=== PATIENT | male | born 1935 | race Caucasian/White ===

== ENCOUNTER 2017-07-21 09:33 | Emergency (ER) | payer MEDICARE, BC ==
[~2017-07-21] VITALS: Ht 182.9 cm; Wt 70.7 kg
[~2017-07-21 09:33] MED LIST: ALPR-624 PO; CARV6.253 PO; DIGO250T77 PO; FLUT16SP26 BOTHNARES; HYDR-569 PO; LANS30CA56 PO; LEVO50TA8 PO
[2017-07-21 09:42] VITALS: BP 141/70
[2017-07-21] MEDS ORDERED: LIDOcaine Viscous 15ml cup MM PRN (10:00)
[2017-07-21] MEDS ORDERED: VALA100027 PO (10:04)
== END 2017-07-21 10:38 | disposition home or self-care (01) ==
LOC: ER 09:34
DX: A60.01 Herpesviral infection of penis (principal); I48.91 Unspecified atrial fibrillation; K21.9 Gastro-esophageal reflux disease without esophagitis; Z86.73 Personal history of transient ischemic attack (TIA), and cerebral infarction without residual deficits; Z85.118 Personal history of other malignant neoplasm of bronchus and lung; Z95.1 Presence of aortocoronary bypass graft; Z90.49 Acquired absence of other specified parts of digestive tract; Z88.5 Allergy status to narcotic agent
CPT/HCPCS: 87252; 99284

== ENCOUNTER 2017-09-22 15:10 | Inpatient (IN) | payer MEDICARE, BC ==
[~2017-09-22] VITALS: Ht 177.8 cm; Wt 70.9 kg
[~2017-09-22 15:10] MED LIST changes: +VALA100027 PO
[2017-09-22] MEDS ORDERED: albuterol 2.5 MG/3 ML nebule NEB ONE (15:30)
[2017-09-22 15:45] LABS: HEMATOCRIT 39.7 % (42.0-52.0); HEMOGLOBIN 13.5 g/dl (14.0-17.9); MEAN CORPUSCULAR HEMOGLOBIN 33.3 PG (27.0-31.0); MEAN PLATELET VOLUME 8.8 FL (7.4-10.4); PLATELET COUNT 129 X10'3 (140-440); RED BLOOD COUNT 4.05 X10'6 (4.70-6.10); RED CELL DISTRIBUTION WIDTH 14.1 % (11.5-14.5); WHITE BLOOD COUNT 5.3 X10'3 (4.5-11.0)
[2017-09-22 15:59] LABS: ALANINE AMINOTRANSFERASE 30 U/L (12-78); ALBUMIN 4.1 G/DL (3.4-5.0); ALKALINE PHOSPHATASE 92 IU/L (46-116); ANION GAP 7 (8-16); BILIRUBIN,TOTAL 0.6 MG/DL (0.1-1.0); BLOOD UREA NITROGEN 14 MG/DL (7-18); BUN/CREATININE RATIO 12.2 (5.4-32.0); CALCIUM 9.5 MG/DL (8.5-10.1); CHLORIDE 100 MMOL/L (99-107); CREATININE 1.15 MG/DL (0.60-1.10); GLUCOSE 174 MG/DL (70-104); SODIUM 138 MMOL/L (135-145); TOTAL CARBON DIOXIDE 30.6 MMOL/L (24-32); TOTAL PROTEIN 8.4 G/DL (6.4-8.2); eGFR 61 ML/MIN
[2017-09-22 16:07] LABS: POTASSIUM 4.6 MMOL/L (3.5-5.1)
[2017-09-22 16:08] LABS: ASPARTATE AMINO TRANSFERASE 23 U/L (10-37)
[2017-09-22 16:10] LABS: TOTAL CELLS COUNTED 100
[2017-09-22] MEDS ORDERED: furosemide 10 MG/1 ML 10ml inj IV ONE (16:10)
[2017-09-22] MEDS ORDERED: metoprolol tartrate 1mg/ml inj IV ONE (16:10)
[2017-09-22 16:11] LABS: PLATELET ESTIMATE DECREASED
[2017-09-22 16:12] LABS: POIKILOCYTOSIS 1+
[2017-09-22] MEDS ORDERED: CefTRIAXone 2gm/D5W 50ml 50 ML IV ONE (16:30)
[2017-09-22] MEDS ORDERED: azithromycin/NS 500mg/250ml 250 ML IV ONE (16:30)
[2017-09-22 16:35] LABS: ABG BASE EXCESS 1.3 mmol/L (-2.0-3.0); ABG HCO3 23.3 mmol/L (22.0-26.0); ABG OXYGEN SATURATION 97.6 % (95-98); ABG PCO2 (T) 29.3 mmHg (35.0-48.0); ABG PH (T) 7.518 (7.350-7.450); ABG PO2 (T) 103.8 mmHg (83-108); ALLEN'S TEST Positive; FCOHb 0.9 % (0.5-1.5); FMetHb 0.3 % (0.3-1.12); FO2Hb 96.4 % (94-100); RESPIRATORY RATE (OBSERVED) 24 b/min
[2017-09-22] MEDS ORDERED: OMEP40CA37 PO (17:15)
[2017-09-22] MEDS ORDERED: HYDROcodone/acetaminophen 5mg/325mg tablet PO PRN ×2 (17:25→17:30)
[2017-09-22] MEDS ORDERED: ALPRAZolam 0.5mg tablet PO PRN (17:25)
[2017-09-22] MEDS ORDERED: mag hydrox/Alum hydrox/simeth 30ml oral suspension PO PRN (17:30)
[2017-09-22] MEDS ORDERED: HYDROcodone/acetaminophen 10/325mg tab PO PRN (17:30)
[2017-09-22] MEDS ORDERED: acetaminophen 325mg tablet PO PRN ×2 (17:30)
[2017-09-22] MEDS ORDERED: metoclopramide 5 mg/ml inj IV PRN (17:30)
[2017-09-22] MEDS ORDERED: HYDROmorphone 1 mg/ml syringe IV PRN (17:30)
[2017-09-22] MEDS ORDERED: diphenhydrAMINE 25mg capsule PO PRN (17:30)
[2017-09-22] MEDS ORDERED: ondansetron/PF 4mg/2ml inj IV PRN (17:30)
[2017-09-22] MEDS ORDERED: diphenhydrAMINE 50 mg/ml inj IV PRN (17:30)
[2017-09-22] MEDS ORDERED: magnesium hydroxide 30ml (MOM) UD suspension PO PRN (17:30)
[2017-09-22] MEDS ORDERED: bisacodyl 10mg suppository rectal RC PRN (17:30)
[2017-09-22] MEDS ORDERED: acetaminophen 650mg rectal suppository RC PRN (17:30)
[2017-09-22 17:47] LABS: D-DIMER 0.57 MG/L FEU (0-0.50)
[2017-09-22 18:10] LABS: LIPASE 232 U/L (73-393); MAGNESIUM 1.9 MG/DL (1.5-2.4)
[2017-09-22] MEDS ORDERED: ATOR20TA PO (18:10)
[2017-09-22 18:12] LABS: PHOSPHORUS 3.1 MG/DL (2.3-4.5)
[2017-09-22 18:13] LABS: PARTIAL THROMBOPLASTIN TIME 26 SECONDS (22-32); PROTHROMBIN TIME 10.7 SECONDS (9.0-12.0)
[2017-09-22] MEDS ORDERED: pneumococcal 23-VAL P-sac vacc 25 mcg/0.5ml vial IMVAC ONE (18:35)
[2017-09-22] MEDS: carvedilol 6.25mg tablet PO SCH (19:03)
[2017-09-22] MEDS: docusate sod 100mg capsule PO SCH (19:03)
[2017-09-22] MEDS ORDERED: methylPREDNISolone sod succ 125mg/2ml vial IV ONE (20:00)
[2017-09-22] MEDS ORDERED: albuterol 2.5 MG/3 ML nebule NEB PRN (20:05)
[2017-09-22] MEDS ORDERED: temazepam 15mg capsule PO PRN (21:00)
[2017-09-23] VITALS: BP 113/68
[2017-09-23] MEDS: HYDROmorphone 1 mg/ml syringe IV PRN ×2 (01:38→05:37)
[2017-09-23 02:26] LABS: BASOPHILS % (AUTO) 0.1 % (0-1); EOSINOPHILS % (AUTO) 0.6 % (0-6); HEMATOCRIT 39.1 % (42.0-52.0); HEMOGLOBIN 13.3 g/dl (14.0-17.9); LYMPHOCYTES # (AUTO) 0.6 X10'3 (1.1-4.8); LYMPHOCYTES % (AUTO) 9.9 % (21-51); MEAN CORPUSCULAR HEMOGLOBIN 33.8 PG (27.0-31.0); MEAN CORPUSCULAR VOLUME 99.3 FL (78-98); MEAN PLATELET VOLUME 9.4 FL (7.4-10.4); MONOCYTES # (AUTO) 0.1 X10'3 (0-0.9); MONOCYTES % (AUTO) 1.8 % (2-12); NEUTROPHILS % (AUTO) 87.6 % (42-75); PLATELET COUNT 125 X10'3 (140-440); RED BLOOD COUNT 3.94 X10'6 (4.70-6.10); WHITE BLOOD COUNT 5.8 X10'3 (4.5-11.0)
[2017-09-23 02:58] LABS: ALANINE AMINOTRANSFERASE 28 U/L (12-78); ALBUMIN 3.8 G/DL (3.4-5.0); ALBUMIN/GLOBULIN RATIO 0.9 (1.1-1.5); ALKALINE PHOSPHATASE 92 IU/L (46-116); ANION GAP 6 (8-16); ASPARTATE AMINO TRANSFERASE 27 U/L (10-37); BILIRUBIN,TOTAL 0.5 MG/DL (0.1-1.0); BLOOD UREA NITROGEN 20 MG/DL (7-18); BUN/CREATININE RATIO 15.4 (5.4-32.0); CALCIUM 9.3 MG/DL (8.5-10.1); CHLORIDE 99 MMOL/L (99-107); GLUCOSE 300 MG/DL (70-104); POTASSIUM 4.1 MMOL/L (3.5-5.1); SODIUM 135 MMOL/L (135-145); TOTAL CARBON DIOXIDE 29.9 MMOL/L (24-32); TOTAL PROTEIN 8.1 G/DL (6.4-8.2); eGFR 53 ML/MIN
[2017-09-23 03:01] LABS: CHOL/HDL RATIO 3.3 (0.00-4.99); CHOLESTEROL 116 MG/DL (0-200); HDL CHOLESTEROL 35 MG/DL (35-60); LDL CHOLESTEROL 71 MG/DL (50-100); TRIGLYCERIDES 68 MG/DL (20-135)
[2017-09-23 08:05] VITALS: BP 151/90
[2017-09-23] MEDS: levoTHYROXINE 25mcg tablet PO SCH (09:32)
[2017-09-23] MEDS: docusate sod 100mg capsule PO SCH ×2 (09:32→19:19)
[2017-09-23] MEDS: pantoprazole 40mg Tablet.DR PO SCH (09:33)
[2017-09-23] MEDS: carvedilol 6.25mg tablet PO SCH ×2 (09:34→19:12)
[2017-09-23] MEDS: furosemide 10 MG/1 ML 10ml inj IV SCH (09:36)
[2017-09-23 11:54] VITALS: BP 109/78
[2017-09-23] MEDS: levoFLOXACIN 750MG TABLET PO SCH (12:19)
[2017-09-23] MEDS: enoxaparin 30mg/0.3ml syringe SUBCUT SCH (19:19)
[2017-09-23] MEDS: lactobacillus rhamnosus 10,000 MMU CELLS/CAPSULE PO SCH (19:19)
[2017-09-23 20:00] VITALS: BP 95/60
[2017-09-23] MEDS: ipratropium/albuterol 3ml nebule NEB SCH ×2 (20:08→23:40)
[2017-09-23] MEDS: methylPREDNISolone sod succ 125mg/2ml vial IV SCH (23:56)
[2017-09-24] VITALS: BP 125/73
[2017-09-24] MEDS: ipratropium/albuterol 3ml nebule NEB SCH ×4 (03:00→15:00)
[2017-09-24 06:19] LABS: BASOPHILS % (AUTO) 0.2 % (0-1); EOSINOPHILS # (AUTO) 0.1 X10'3 (0-0.9); EOSINOPHILS % (AUTO) 1.3 % (0-6); HEMATOCRIT 41.1 % (42.0-52.0); LYMPHOCYTES # (AUTO) 0.8 X10'3 (1.1-4.8); LYMPHOCYTES % (AUTO) 8.1 % (21-51); MEAN CORPUSCULAR HEMOGLOBIN 33.5 PG (27.0-31.0); MEAN CORPUSCULAR VOLUME 98.3 FL (78-98); MEAN PLATELET VOLUME 8.7 FL (7.4-10.4); MONOCYTES # (AUTO) 0.3 X10'3 (0-0.9); MONOCYTES % (AUTO) 2.9 % (2-12); NEUTROPHILS # (AUTO) 8.4 X10'3 (1.8-7.7); NEUTROPHILS % (AUTO) 87.5 % (42-75); PLATELET COUNT 136 X10'3 (140-440); RED BLOOD COUNT 4.18 X10'6 (4.70-6.10); RED CELL DISTRIBUTION WIDTH 14.3 % (11.5-14.5); WHITE BLOOD COUNT 9.6 X10'3 (4.5-11.0)
[2017-09-24 06:27] LABS: ALANINE AMINOTRANSFERASE 36 U/L (12-78); ALBUMIN 3.9 G/DL (3.4-5.0); ALBUMIN/GLOBULIN RATIO 0.9 (1.1-1.5); ALKALINE PHOSPHATASE 85 IU/L (46-116); ANION GAP 9 (8-16); ASPARTATE AMINO TRANSFERASE 21 U/L (10-37); BILIRUBIN,TOTAL 0.6 MG/DL (0.1-1.0); BLOOD UREA NITROGEN 35 MG/DL (7-18); BUN/CREATININE RATIO 24.3 (5.4-32.0); CALCIUM 9.1 MG/DL (8.5-10.1); CHLORIDE 96 MMOL/L (99-107); CREATININE 1.44 MG/DL (0.60-1.10); GLUCOSE 287 MG/DL (70-104); POTASSIUM 4.5 MMOL/L (3.5-5.1); SODIUM 136 MMOL/L (135-145); TOTAL CARBON DIOXIDE 31.2 MMOL/L (24-32); TOTAL PROTEIN 8.4 G/DL (6.4-8.2); eGFR 47 ML/MIN
[2017-09-24 07:12] VITALS: BP 143/92
[2017-09-24] MEDS ORDERED: aspirin 81mg tablet.DR PO SCH (08:00)
[2017-09-24] MEDS: furosemide 10 MG/1 ML 10ml inj IV SCH (08:26)
[2017-09-24] MEDS: pantoprazole 40mg Tablet.DR PO SCH (08:26)
[2017-09-24] MEDS: methylPREDNISolone sod succ 125mg/2ml vial IV SCH ×2 (08:26→16:09)
[2017-09-24] MEDS: docusate sod 100mg capsule PO SCH (08:26)
[2017-09-24] MEDS: levoTHYROXINE 25mcg tablet PO SCH (08:26)
[2017-09-24] MEDS: lactobacillus rhamnosus 10,000 MMU CELLS/CAPSULE PO SCH (08:27)
[2017-09-24] MEDS: carvedilol 6.25mg tablet PO SCH (08:27)
[2017-09-24] MEDS: enoxaparin 30mg/0.3ml syringe SUBCUT SCH (08:38)
[2017-09-24] MEDS ORDERED: glimepiride 1 MG tablet PO SCH (10:40)
[2017-09-24 11:00] VITALS: BP 119/77
[2017-09-24] MEDS: levoFLOXACIN 750MG TABLET PO SCH (11:32)
[2017-09-24] MEDS ORDERED: LEVO750T46 PO (14:37)
[2017-09-24] MEDS ORDERED: GLIM1TAB46 PO (14:37)
[2017-09-24] MEDS ORDERED: PRED10TA23 PO (14:37)
[2017-09-24] MEDS ORDERED: FURO-150 PO (14:37)
[2017-09-24] MEDS ORDERED: ASPI-1071 PO (14:37)
== END 2017-09-24 16:30 | disposition home or self-care (01) | DRG 291 ==
LOC: ER 15:11 → ED HOLD 17:29 → SUR 3N 20:30
PROVIDERS: ADMIT Family Medicine; ATTEND Internal Medicine
DX: I11.0 Hypertensive heart disease with heart failure (principal); J18.9 Pneumonia, unspecified organism; J44.1 Chronic obstructive pulmonary disease with (acute) exacerbation; J44.0 Chronic obstructive pulmonary disease with (acute) lower respiratory infection; I50.23 Acute on chronic systolic (congestive) heart failure; J38.01 Paralysis of vocal cords and larynx, unilateral; D69.6 Thrombocytopenia, unspecified; E11.9 Type 2 diabetes mellitus without complications; K21.9 Gastro-esophageal reflux disease without esophagitis; E86.0 Dehydration; R06.89 Other abnormalities of breathing; I25.10 Atherosclerotic heart disease of native coronary artery without angina pectoris; I48.91 Unspecified atrial fibrillation; Z95.1 Presence of aortocoronary bypass graft; Z90.49 Acquired absence of other specified parts of digestive tract; Z79.890 Hormone replacement therapy; Z88.6 Allergy status to analgesic agent; Z79.899 Other long term (current) drug therapy; Z85.118 Personal history of other malignant neoplasm of bronchus and lung; Z86.73 Personal history of transient ischemic attack (TIA), and cerebral infarction without residual deficits; Z82.49 Family history of ischemic heart disease and other diseases of the circulatory system; Z82.3 Family history of stroke
CPT/HCPCS: 36415; 36600; 71045; 71250; 80053; 80061; 80162; 82803; 82948; 83036; 83605; 83690; 83735; 83880; 84100; 84443; 84484; 85018; 85025; 85379; 85610; 85730; 87040; 87070; 90732; 93005; 93306; 94640; 94760; 97116; 97162; A6258; J0456; J0696; J1170; J1650; J1940; J2930; J3490

== ENCOUNTER 2020-07-04 05:13 | Emergency (ER) | payer MEDICARE, BC ==
[~2020-07-04] VITALS: Ht 185.4 cm; Wt 70.5 kg
[~2020-07-04 05:13] MED LIST changes: +AMA1T PO; +ASPI-1071 PO; +ATOR20TA PO; -DIGO250T77 PO; -FLUT16SP26 BOTHNARES; -HYDR-569 PO; -LANS30CA56 PO; +OMEP40CA13 PO; -VALA100027 PO
[2020-07-04] MEDS ORDERED: ondansetron/PF 4mg/2ml inj IV ONE (05:25)
[2020-07-04] MEDS ORDERED: fentaNYL/PF 50MCG/1 ML 2ML syringe IV ONE (05:25)
[2020-07-04] MEDS ORDERED: METF-436 PO (05:48)
[2020-07-04 06:02] LABS: CLARITY,URINE SLIGHTLY CLOUDY (Clear); COLOR,URINE YELLOW (Yellow); GLUCOSE, URINE NEGATIVE (Neg); KETONES,URINE 15 mg/dl (Neg); LEUKOCYTE ESTERASE ,URINE NEGATIVE (Neg); NITRITES, URINE NEGATIVE (Neg); OCCULT BLOOD,URINE LARGE (Neg); PROTEIN,URINE 30 mg/dl (Neg); UROBILINOGEN,URINE 0.2 E.U/dL (0.2-1.0)
[2020-07-04 06:03] LABS: ALANINE AMINOTRANSFERASE 18 U/L (12-78); ALBUMIN 3.7 G/DL (3.4-5.0); ALKALINE PHOSPHATASE 106 IU/L (46-116); ANION GAP 13 (8-16); ASPARTATE AMINO TRANSFERASE 16 U/L (10-37); BLOOD UREA NITROGEN 23 MG/DL (7-18); BUN/CREATININE RATIO 23.2 (5.4-32.0); CALCIUM 9.3 MG/DL (8.5-10.1); CHLORIDE 103 MMOL/L (99-107); CREATININE 0.99 MG/DL (0.60-1.10); GLUCOSE 202 MG/DL (70-104); SODIUM 141 MMOL/L (135-145); TOTAL CARBON DIOXIDE 25.5 MMOL/L (24-32); TOTAL PROTEIN 7.4 G/DL (6.4-8.2); eGFR 72 ML/MIN
[2020-07-04 06:06] LABS: BASOPHILS # (AUTO) 0.1 X10'3 (0-0.2); BASOPHILS % (AUTO) 1.7 % (0-1); EOSINOPHILS # (AUTO) 0.1 X10'3 (0-0.9); EOSINOPHILS % (AUTO) 2.2 % (0-6); HEMATOCRIT 28.2 % (42.0-52.0); HEMOGLOBIN 9.5 g/dl (14.0-17.9); LIPASE 85 U/L (73-393); LYMPHOCYTES # (AUTO) 0.8 X10'3 (1.1-4.8); LYMPHOCYTES % (AUTO) 19.7 % (21-51); MEAN CORPUSCULAR HEMOGLOBIN 36.8 PG (27.0-31.0); MEAN CORPUSCULAR HGB CONC 33.8 g/dL (33.0-36.5); MEAN CORPUSCULAR VOLUME 108.8 FL (78-98); MONOCYTES # (AUTO) 1.3 X10'3 (0-0.9); MONOCYTES % (AUTO) 29.4 % (2-12); PLATELET COUNT 127 X10'3 (140-440); RED BLOOD COUNT 2.59 X10'6 (4.70-6.10); RED CELL DISTRIBUTION WIDTH 15.1 % (11.5-14.5); TROPONIN I < 0.04 NG/ML (0.0-0.05); WHITE BLOOD COUNT 4.3 X10'3 (4.5-11.0)
[2020-07-04 06:08] LABS: UA COLLECTION TYPE STRAIGHT CATH
[2020-07-04 06:43] LABS: AMORPHOUS URATES 2+
[2020-07-04 06:44] LABS: BACTERIA,URINE NONE SEEN /HPF (Neg); MUCUS STRANDS NONE SEEN /LPF (Neg); RBC,URINE 50-100 /HPF (0-2); SQUAMOUS EPITHELIAL CELL,UR FEW /LPF (FEW)
[2020-07-04 06:55] LABS: ETHANOL < 0.010 GM/DL (0.0-0.010)
[2020-07-04 07:03] LABS: TOTAL CELLS COUNTED 100
[2020-07-04 07:04] LABS: ACANTHOCYTES FEW; GIANT PLATELET FEW; LARGE PLATELETS FEW; PLATELET ESTIMATE DECREASED; SCHISTOCYTES FEW
[2020-07-04 07:05] LABS: TEAR DROP CELLS FEW
[2020-07-04] MEDS ORDERED: ketorolac tromethamine 15mg/ml inj. IV ONE (07:15)
[2020-07-04] MEDS ORDERED: normal saline 1000ML IV soln IVB ONE (07:15)
[2020-07-04 07:37] LABS: MAGNESIUM 1.4 MG/DL (1.5-2.4)
[2020-07-04] MEDS ORDERED: CefTRIAXone/D5W-Rocephin 1gm 50 ML IV ONE (07:45)
--- NOTE | 2020-07-04 08:09 | NUR ---
called pharmacy stated making abx now and will bring down once available.
[2020-07-04] MEDS ORDERED: FLO0.4C PO (08:19)
[2020-07-04] MEDS ORDERED: tamsulosin 0.4mg capsule PO SCH (08:20)
[2020-07-04] MEDS ORDERED: tamsulosin 0.4mg capsule PO ONE (08:25)
[2020-07-04 09:47] VITALS: BP 130/84
== END 2020-07-04 09:48 | disposition home or self-care (01) ==
LOC: ER 05:14
DX: N23 Unspecified renal colic (principal); N13.30 Unspecified hydronephrosis; N39.0 Urinary tract infection, site not specified; R31.9 Hematuria, unspecified; I48.91 Unspecified atrial fibrillation; I25.10 Atherosclerotic heart disease of native coronary artery without angina pectoris; K21.9 Gastro-esophageal reflux disease without esophagitis; Z86.73 Personal history of transient ischemic attack (TIA), and cerebral infarction without residual deficits; Z90.49 Acquired absence of other specified parts of digestive tract; Z95.1 Presence of aortocoronary bypass graft; Z88.5 Allergy status to narcotic agent; Z79.82 Long term (current) use of aspirin; Z79.84 Long term (current) use of oral hypoglycemic drugs; Z79.899 Other long term (current) drug therapy
CPT/HCPCS: 36415; 74176; 80053; 80320; 81001; 83605; 83690; 83735; 84145; 84484; 85007; 85025; 87040; 87088; 96365; 96375; 99284; J0696; J1885; J2405; J3010; J7030

== ENCOUNTER 2020-07-08 17:33 | Emergency (ER) | payer MEDICARE, BC ==
[~2020-07-08] VITALS: Ht 182.9 cm; Wt 75.0 kg
[~2020-07-08 17:33] MED LIST changes: -ATOR20TA PO; +FLO0.4C PO; +METF-436 PO
[2020-07-08] MEDS ORDERED: fentaNYL/PF 50MCG/1 ML 2ML syringe IV ONE (19:00)
[2020-07-08] MEDS ORDERED: ondansetron/PF 4mg/2ml inj IV ONE (19:00)
[2020-07-08] MEDS ORDERED: acetaminophen 325mg tablet PO ONE (19:00)
[2020-07-08] MEDS ORDERED: normal saline 1000ml 1,000 ML IV ONE (19:00)
--- NOTE | 2020-07-08 19:16 | NUR ---
pt to ct, medicated for pain
[2020-07-08 19:21] LABS: BASOPHILS % (AUTO) 0.4 % (0-1); EOSINOPHILS # (AUTO) 0.1 X10'3 (0-0.9); EOSINOPHILS % (AUTO) 3.9 % (0-6); HEMATOCRIT 23.8 % (42.0-52.0); LYMPHOCYTES # (AUTO) 0.6 X10'3 (1.1-4.8); LYMPHOCYTES % (AUTO) 21.5 % (21-51); MEAN CORPUSCULAR HEMOGLOBIN 36.8 PG (27.0-31.0); MEAN CORPUSCULAR HGB CONC 33.7 g/dL (33.0-36.5); MEAN PLATELET VOLUME 10.7 FL (7.4-10.4); MONOCYTES # (AUTO) 0.9 X10'3 (0-0.9); MONOCYTES % (AUTO) 34.2 % (2-12); NEUTROPHILS # (AUTO) 1.1 X10'3 (1.8-7.7); PLATELET COUNT 93 X10'3 (140-440); RED BLOOD COUNT 2.18 X10'6 (4.70-6.10); RED CELL DISTRIBUTION WIDTH 15.2 % (11.5-14.5); WHITE BLOOD COUNT 2.7 X10'3 (4.5-11.0)
[2020-07-08 19:45] LABS: ALANINE AMINOTRANSFERASE 18 U/L (12-78); ALBUMIN 3.2 G/DL (3.4-5.0); ALKALINE PHOSPHATASE 85 IU/L (46-116); ANION GAP 7 (8-16); ASPARTATE AMINO TRANSFERASE 14 U/L (10-37); BILIRUBIN,TOTAL 0.4 MG/DL (0.1-1.0); BLOOD UREA NITROGEN 17 MG/DL (7-18); BUN/CREATININE RATIO 17.5 (5.4-32.0); CALCIUM 8.2 MG/DL (8.5-10.1); CHLORIDE 104 MMOL/L (99-107); CREATININE 0.97 MG/DL (0.60-1.10); GLUCOSE 150 MG/DL (70-104); LIPASE < 50 U/L (73-393); POTASSIUM 4.5 MMOL/L (3.5-5.1); SODIUM 138 MMOL/L (135-145); TOTAL CARBON DIOXIDE 27.5 MMOL/L (24-32); TOTAL PROTEIN 6.5 G/DL (6.4-8.2); eGFR 73 ML/MIN
[2020-07-08] MEDS ORDERED: ketorolac tromethamine 15mg/ml inj. IV ONE (20:05)
[2020-07-08 20:21] LABS: TOTAL CELLS COUNTED 100
[2020-07-08 20:23] LABS: PLATELET ESTIMATE DECREASED
[2020-07-08 20:25] LABS: ELLIPTOCYTES 1+; SCHISTOCYTES FEW
[2020-07-08 20:29] LABS: LARGE PLATELETS FEW
[2020-07-08 21:06] LABS: CLARITY,URINE SLIGHTLY CLOUDY (Clear); COLOR,URINE YELLOW (Yellow); GLUCOSE, URINE NEGATIVE (Neg); KETONES,URINE NEGATIVE (Neg); LEUKOCYTE ESTERASE ,URINE NEGATIVE (Neg); NITRITES, URINE NEGATIVE (Neg); OCCULT BLOOD,URINE LARGE (Neg); PROTEIN,URINE 30 mg/dl (Neg); UROBILINOGEN,URINE 0.2 E.U/dL (0.2-1.0)
[2020-07-08 21:11] LABS: UA COLLECTION TYPE URINAL
[2020-07-08 21:14] LABS: BACTERIA,URINE NONE SEEN /HPF (Neg); MUCUS STRANDS FEW /LPF (Neg); RBC,URINE 50-100 /HPF (0-2); SQUAMOUS EPITHELIAL CELL,UR FEW /LPF (FEW); WBC,URINE 0-4 /HPF (0-4)
[2020-07-08] MEDS ORDERED: HYDR-3965 PO (21:20)
[2020-07-08] MEDS ORDERED: FLO0.4C PO (21:20)
[2020-07-08 22:08] VITALS: BP 117/71
== END 2020-07-08 22:11 | disposition home or self-care (01) ==
LOC: ER 17:33
DX: N20.0 Calculus of kidney (principal); I48.19 Other persistent atrial fibrillation; I25.10 Atherosclerotic heart disease of native coronary artery without angina pectoris; K21.9 Gastro-esophageal reflux disease without esophagitis; Z87.440 Personal history of urinary (tract) infections; Z87.442 Personal history of urinary calculi; Z85.118 Personal history of other malignant neoplasm of bronchus and lung; Z90.49 Acquired absence of other specified parts of digestive tract; Z95.5 Presence of coronary angioplasty implant and graft; Z90.2 Acquired absence of lung [part of]; Z79.82 Long term (current) use of aspirin; Z88.6 Allergy status to analgesic agent
CPT/HCPCS: 36415; 74176; 80053; 81001; 83690; 85007; 85025; 96361; 96374; 96375; 99284; J1885; J2405; J3010; J7030